=== PATIENT | female | born 1960 | race Hispanic/Latino ===

== ENCOUNTER 2017-02-07 16:46 | Emergency (ER) | payer OTHER ==
--- NOTE | 2017-02-07 17:07 | C.PDOC ---
History Of Present Illness 56 year old female with a past medical history of IV drug abuse presents to the ED for evaluation of painful mass on her left arm. The patient states that the mass gradually developed on her left forearm over the past week. She admits to squeezing the mass but reports that it is now worsening. Patient states that she has had similar symptoms in the in the past. Denies fever, chills, headache , dizziness, neck pain, CP, SOB, dyspnea, abd. pain, N/V, wound discharge, denies weakness , sensory or vascular deficits to left arm. Ambulate to Ed for evaluation, not in any apparent distress. Time Seen by Provider: 02/07/17 17:03 Chief Complaint (Nursing): Abnormal Skin Integrity History Per: Patient History/Exam Limitations: no limitations Onset/Duration Of Symptoms: Days (x7) Current Symptoms Are (Timing): Still Present Location Of Injury: Left: Forearm (painful mass) Quality Of Symptoms: Painful Past Medical History Reviewed: Historical Data, Nursing Documentation, Vital Signs Vital Signs: Last Vital Signs Temp 97.8 F 02/07/17 20:32 Pulse 88 02/07/17 20:32 Resp 18 02/07/17 20:32 BP 155/79 H 02/07/17 20:32 Pulse Ox 100 02/07/17 20:32 - Medical History PMH: Arthritis Denies: Chronic Kidney Disease Surgical History: No Surg Hx Family History: States: Unknown Family Hx - Social History Hx Tobacco Use: Yes Hx Alcohol Use: No Hx Substance Use: Yes Review Of Systems Constitutional: Negative for: Fever, Chills Musculoskeletal: Positive for: Arm Pain (painful mass to left forearm; denies wound discharge) Neurological: Negative for: Weakness (no weaknes to left arm) Physical Exam - Physical Exam Appears: Well, No Acute Distress Skin: Normal Color, Warm, Dry, Other (Left forearm volar aspect tender mass 2cm diameter, erythematous with central small opening, no discharges, Diffuse volra Left forearm edema prxomal to abscess. (-) flactulance, (-) proximal streaking.) Head: Normacephalic Eye(s): bilateral: PERRL Ear(s): Bilateral: Normal Nose: No Flaring, No Discharge Oral Mucosa: Moist, No Drooling Tongue: Normal Appearing Lips: Normal Appearing Neck: Trachea Midline, Supple Cardiovascular: Rhythm Regular Respiratory: No Decreased Breath Sounds, No Accessory Muscle Use, No Stridor, No Wheezing Gastrointestinal/Abdominal: Soft, No Tenderness, No Distention, No Guarding Extremity: Normal ROM, Tenderness (mild tenderness over let forearm. No defomrity. FAROM, no neurovascular deficits.), Other (multiple linear abrasion to B/L UEs.) Neurological/Psych: Oriented x3, Normal Speech, Normal Motor, Normal Sensation, Normal Reflexes ED Course And Treatment - Laboratory Results Result Diagrams: 02/07/17 17:49 02/07/17 17:49 Lab Interpretation: No Acute Changes O2 Sat by Pulse Oximetry: 98 (RA) Pulse Ox Interpretation: Normal Progress Note: On re-eval, pt is afebrile, hemodynamicaly stable, not in any apparent distress. Ambulatory in ED with stable gait. Pt reports, " feels much better" and request discharge now, refuse to stay. ENT: No acute findings. Neck: Supple, (-) meningeal sign. Lungs: CTA B/L, BS equal B/L. Abd : benign. LUE: exam c/w self-draining abscess to volarl aspect left forearm, (- ) flactulance, (-) proximal streaking. FAROM, no neurovascular deficits. Neuorlogicaly intact. Blood work review and appears without acute findings, no leukocytosis. results review and discussed with pt. Pt advised on course of ds. ref. to F/u with PMD in 2-3 days for re-evaluation. return to ED if any worsening or new changes. Medical Decision Making Medical Decision Makin Initial Impression 56 y/o female presenting with painful mass to left forearm Initial Plan: * BMP * CBC * Zosyn [4.5 gm premix] 4.5 gm in 100mL IVPB * Vancomycin 1gm NS 250 mL IVPB * Blood Culture * Urine Culture * Urinalysis * Reevaluation Disposition Counseled Patient/Family Regarding: Studies Performed, Diagnosis, Need For Followup, Rx Given - Disposition [facility]errals: [facility] [Outside] Disposition: HOME/ ROUTINE Disposition Time: 18:12 Condition: STABLE Additional Instructions: TAKE MEDICATION PRESCRIBED KEEP LEFT ARM ELEVATED WARM SALTY WATER COMPRESSES TO AREA TWICE DAILY FOR 5-10 MINUTE FOLLOW UP WITH PMD IN 1-2 DAYS FOR RE-EVALUATION. RETURN TO ED IF ANY WORSENING OR NEW CHANGES. Prescriptions: Clindamycin [Cleocin] 300 mg PO Q6 #28 cap Instructions: Abscess (ED) Forms: [employer] (Nepali) - Clinical Impression Clinical Impression: Abscess, Opioid dependence - Scribe Statement The provider has reviewed the documentation as recorded by the Scribe Carolyn Miramontes All medical record entries made by the Joshuaibe were at my direction and personally dictated by me. I have reviewed the chart and agree that the record accurately reflects my personal performance of the history, physical exam, medical decision making, and the department course for this patient. I have also personally directed, reviewed, and agree with the discharge instructions and disposition.
[2017-02-07] MEDS ORDERED: Piperacill/Tazo 4.5gm in Dex 4.5 GM/100 ML BAG IVPB SCH (17:15)
[2017-02-07 18:07] LABS: BASO # 0.1 K/uL (0.0-0.2); BASO % 0.8 % (0.0-2.0); EOS # 0.2 K/uL (0.0-0.7); EOS % 2.7 % (0.0-4.0); HEMATOCRIT 44.5 % (34.0-47.0); LYMPH # 2.1 K/uL (1.0-4.3); LYMPH % 28.1 % (20.0-40.0); MEAN CELL VOLUME 91.3 fL (81.0-99.0); MEAN CORPUSCULAR HGB CONC 32.9 g/dL (33.0-37.0); MEAN PLATELET VOLUME 9.3 fL (7.2-11.7); MONO # 0.6 K/uL (0.0-0.8); MONO % 8.5 % (0.0-10.0); RED CELL DISTRIBUTION WIDTH 13.4 % (11.5-14.5); WHITE BLOOD COUNT 7.5 K/uL (4.8-10.8)
[2017-02-07 18:12] LABS: CALCIUM 9.1 mg/dl (8.6-10.4); GFR AFRICAN-AMERICAN > 60; GLUCOSE,RANDOM 113 mg/dL (65-105)
[2017-02-07 18:14] LABS: BLOOD UREA NITROGEN 10 mg/dL (7-17); CARBON DIOXIDE 26 mmol/L (22-30); CHLORIDE 101 mmol/L (98-107); POTASSIUM 4.6 mmol/L (3.6-5.2); SODIUM 134 mmol/L (132-148)
[2017-02-07 18:31] LABS: RBC URINE < 1 /hpf (0-3); URINE BILIRUBIN NEGATIVE (NEGATIVE); URINE BLOOD NEGATIVE (NEGATIVE); URINE COLOR Yellow (YELLOW); URINE GLUCOSE (UA) NORMAL (Normal); URINE KETONE NEGATIVE (NEGATIVE); URINE LEUKOCYTE ESTERASE TRACE Leu/uL (Negative); URINE PROTEIN NEGATIVE (NEGATIVE); URINE UROBILINOGEN NORMAL mg/dL (0.2-1.0); WBC URINE 1 /hpf (0-5)
[2017-02-07] MEDS ORDERED: Vancomycin 1 GM in Sodium Chloride 0.9% 200 ML IVPB ONE (19:00)
[2017-02-07 20:33] VITALS: BP 155/79; PULSE 88; RESP 18; TEMP 97.8
[2017-02-08 16:01] VITALS: O2SAT 98
== END 2017-02-07 20:33 | disposition home or self-care (01) ==
LOC: C.ER 16:46
DX: L02.414 Cutaneous abscess of left upper limb (principal); F11.20 Opioid dependence, uncomplicated